=== PATIENT | female | born 1990 | race Caucasian/White ===

== ENCOUNTER 2019-03-27 12:56 | Outpatient (CLI) | payer OTHER ==
[2019-03-27] MEDS ORDERED: LACTATED RINGERS 500 ML IV ONE (13:19)
[2019-03-27 14:25] LABS: Bilirubin,Urine NEG (Negative); Blood,Urine NEG (Negative); Mucus,Urine 1+ /HPF; Urobilinogen,Urine < 2.0 mg/dL (<2.0)
[2019-03-27 14:31] LABS: Color,Urine Yellow (Yellow)
[2019-03-27 14:58] VITALS: BP 96/59
== END 2019-03-27 15:20 | disposition home or self-care (01) ==
LOC: TRG 12:56
PROVIDERS: ATTEND Obstetrics & Gynecology
DX: O26.893 Other specified pregnancy related conditions, third trimester (principal); R19.7 Diarrhea, unspecified; Z3A.36 36 weeks gestation of pregnancy
CPT/HCPCS: 59025; 81001; J7120